=== PATIENT | male | born 1980 | race Two or more races ===

== ENCOUNTER 2019-02-08 16:09 | Emergency (ER) | payer SELFPAY ==
[~2019-02-08] VITALS: Ht 167.6 cm; Wt 88.9 kg
[2019-02-08] MEDS ORDERED: SODIUM CHLORIDE 0.9% 1,000 ML IVB ONE (16:33)
[2019-02-08 18:02] LABS: Alanine Aminotransferase 58 U/L (16-61); Albumin 3.5 g/dL (3.4-5.0); Amylase 41 U/L (25-115); Anion Gap 6 (5-15); Aspartate Aminotransferase 15 U/L (15-37); BUN/Creatinine Ratio 10.8; Basophils # (auto) 0.1 uL; Basophils % (auto) 0.5 % (0.0-2.0); Blood Urea Nitrogen 12 mg/dL (7-18); Calcium 8.1 mg/dL (8.5-10.1); Carbon Dioxide 26 mmol/L (21-32); Chloride 112 mmol/L (98-107); Eosinophils # (auto) 0.1 uL; Eosinophils % (auto) 0.9 % (0.0-7.0); GFR African American 95 mL/min; GFR Non-African American 79 mL/min; Glucose 92 mg/dL (74-106); Hematocrit 46.3 % (41.0-53.0); Lipase 118 U/L (73-393); Lymphocytes # (auto) 1.6 uL; Lymphocytes % (auto) 13.5 % (10.0-50.0); Magnesium 1.9 mg/dL (1.6-2.6); Mean Corpuscular Hgb Conc. 34.5 g/dL (32.0-36.0); Mean Corpuscular Volume 89.8 fL (80.0-100.0); Monocytes % (auto) 8.3 % (0.0-12.0); Neutrophils % (auto) 76.8 % (37.0-80.0); Nucleated Red Blood Cells % 0.5 %; Platelet Count (auto) 149 10^3/uL (140-450); Potassium 3.9 mmol/L (3.5-5.1); Red Blood Cells 5.15 10^6/uL (4.5-5.90); Red Cell Distribution Width 12.2 % (11.8-14.3); Sodium 144 mmol/L (136-145); White Blood Cell 11.7 10^3/uL (4.4-10.8)
[2019-02-08 18:07] LABS: Alkaline Phosphatase 84 U/L (45-117); Bilirubin, Total 1.2 mg/dL (0.2-1.0); Total Protein 6.4 g/dL (6.4-8.2)
[2019-02-08 18:26] LABS: INR 1.02 (0.9-1.15); Partial Thromboplastin Time 26.9 sec (23.64-32.05)
[2019-02-08 18:28] LABS: Urine Bacteria NONE SEEN /hpf (None Seen); Urine Blood Negative /uL (Negative); Urine Mucus FEW (None Seen); Urine Specific Gravity 1.025 (1.001-1.035); Urine WBC 4 /hpf (0 - 3)
[2019-02-08 18:36] LABS: Alcohol, Urine < 3.0 mg/dL (0-5); Amphetamine Screen, Urine NEGATIVE (NEGATIVE); Barbiturate Scree,Urine NEGATIVE (NEGATIVE); Benzodiazephine Screen, Urine NEGATIVE (NEGATIVE); Cannabinoid Screen, Urine NEGATIVE (NEGATIVE); Cocaine Screen, Urine NEGATIVE (NEGATIVE); Opiate Scree,Urine NEGATIVE (NEGATIVE); Phencyclidine Screen, Urine NEGATIVE (NEGATIVE)
[2019-02-08 20:00] VITALS: BP 120/61
== END 2019-02-08 20:16 | disposition home or self-care (01) ==
LOC: EDBD 16:09 → ER 16:09
DX: N20.0 Calculus of kidney (principal)
CPT/HCPCS: 36415; 71045; 74176; 80053; 80307; 81001; 82150; 83690; 83735; 84484; 85025; 85610; 85730; 93005; 94761